=== PATIENT | female | born 1935 | race Caucasian/White ===

== ENCOUNTER 2021-03-08 19:30 | Inpatient (IN) ==
[2021-03-08] MEDS ORDERED: Morphine 4 MG/ML VIAL (1 ml) IV ONE (22:51)
[2021-03-08] MEDS ORDERED: Lactated Ringers 1000 ml BAG 1,000 ML IV SCH (23:45)
[2021-03-08 23:56] LABS: ABS Eosinophils 0.1 10^3/ul (0-0.6); ABS Lymphocytes 0.7 10^3/ul (1.0-4.8); ABS Monocytes 0.8 10^3/ul (0-0.8); ABS Neutrophils 6.4 10^3/ul (1.5-7.7); Eosinophil % 1.2 %; Hematocrit 31 % (35-47); Hemoglobin 10.7 g/dL (12.0-16.0); Lymphocyte % 8.4 %; Mean Corpuscular HGB Conc 35 g/dL (31-36); Mean Corpuscular Hemoglobin 30 pg (27-31); Mean Corpuscular Volume 86 fL (80-97); Mean Platelet Volume 7.6 fL (7.4-10.4); Platelet Count 137 10^3/uL (150-450); Red Blood Count 3.57 10^6 /uL (3.70-4.87); Red Cell Distribution Width 14 % (10-15)
[2021-03-08] MEDS: Acetaminophen IV 1 GM/100ML 100 ML IV PRN (23:58)
[2021-03-09 00:02] LABS: INR 1.26 (0.86-1.15)
[2021-03-09 00:25] LABS: Albumin 4.2 g/dL (3.2-5.2); Albumin/Globulin Ratio 1.8 (1-3); Calcium 9.3 mg/dL (8.6-10.3); EGFR African American 60.8 (>60); EGFR Non-African American 50.2 (>60); Globulin 2.3 g/dL (2-4); Total Bilirubin 0.7 mg/dL (0.2-1.0); Total Protein 6.5 g/dL (6.4-8.9)
[2021-03-09 00:39] LABS: Rapid COVID-19 Molecular Undetected (Undetected)
[2021-03-09 01:43] LABS: Potassium 4.1 mmol/L (3.5-5.0)
[2021-03-09] MEDS: Heparin 5000 UNITS/ML 1 mL VIAL SUBCUT SCH ×3 (05:21→21:48)
[2021-03-09 06:21] LABS: ABS Lymphocytes 0.9 10^3/ul (1.0-4.8); ABS Monocytes 0.7 10^3/ul (0-0.8); ABS Neutrophils 4.9 10^3/ul (1.5-7.7); Eosinophil % 0.7 %; Hematocrit 30 % (35-47); Hemoglobin 10.8 g/dL (12.0-16.0); Lymphocyte % 13.3 %; Mean Corpuscular HGB Conc 36 g/dL (31-36); Mean Corpuscular Hemoglobin 30 pg (27-31); Mean Corpuscular Volume 86 fL (80-97); Mean Platelet Volume 7.5 fL (7.4-10.4); Platelet Count 128 10^3/uL (150-450); Red Blood Count 3.55 10^6 /uL (3.70-4.87); Red Cell Distribution Width 14 % (10-15); White Blood Count 6.5 10^3/uL (3.5-10.8)
[2021-03-09 06:37] LABS: Calcium 9.3 mg/dL (8.6-10.3); EGFR African American 60.8 (>60); EGFR Non-African American 50.2 (>60); Potassium 4.3 mmol/L (3.5-5.0)
[2021-03-09] MEDS: Acetaminophen IV 1 GM/100ML 100 ML IV PRN ×2 (09:52→17:31)
[2021-03-10] MEDS: Acetaminophen IV 1 GM/100ML 100 ML IV PRN ×3 (00:10→18:07)
[2021-03-10 06:04] LABS: ABS Eosinophils 0.2 10^3/ul (0-0.6); ABS Monocytes 0.5 10^3/ul (0-0.8); ABS Neutrophils 2.6 10^3/ul (1.5-7.7); Eosinophil % 4.8 %; Hematocrit 32 % (35-47); Hemoglobin 11.1 g/dL (12.0-16.0); Lymphocyte % 23.9 %; Mean Corpuscular HGB Conc 35 g/dL (31-36); Mean Corpuscular Hemoglobin 31 pg (27-31); Mean Corpuscular Volume 87 fL (80-97); Mean Platelet Volume 7.6 fL (7.4-10.4); Nucleated Red Blood Cells % 0.1; Platelet Count 125 10^3/uL (150-450); Red Blood Count 3.64 10^6 /uL (3.70-4.87); Red Cell Distribution Width 14 % (10-15); White Blood Count 4.3 10^3/uL (3.5-10.8)
[2021-03-10 06:25] LABS: INR 1.27 (0.86-1.15)
[2021-03-10 06:28] LABS: Calcium 9.4 mg/dL (8.6-10.3); EGFR African American 60.1 (>60); EGFR Non-African American 49.7 (>60); Potassium 4.6 mmol/L (3.5-5.0)
[2021-03-10] MEDS: Heparin 5000 UNITS/ML 1 mL VIAL SUBCUT SCH ×3 (06:28→22:43)
[2021-03-10] MEDS ORDERED: Metoclopramide 5 MG/ML VIAL (10 mg) IV PRN (11:55)
[2021-03-10] MEDS ORDERED: HYDROcodone/ACETAMIN 5/325 mg TAB PO PRN (11:55)
[2021-03-10] MEDS ORDERED: fentaNYL 100 mcg/2 ml 50 MCG/ML VIAL IV PRN (11:55)
[2021-03-10] MEDS ORDERED: Naloxone 0.4 mg VIAL 0.4 mg/ml 1 ml VIAL IV PRN (11:55)
[2021-03-10] MEDS ORDERED: Ondansetron 4 mg VIAL 2 MG/ML 2 ml VIAL IV PRN (11:55)
[2021-03-10] MEDS ORDERED: Morphine 2 MG/ML SYRINGE ONE (12:09)
[2021-03-10] MEDS: Morphine 2 MG/ML SYRINGE IV PRN (12:12)
[2021-03-10] MEDS: Ondansetron 4 mg VIAL 2 MG/ML 2 ml VIAL IV PRN (12:12)
[2021-03-11] MEDS ORDERED: Bupivacaine 0.25% EPI 200,000 30 ML SDV ONE (06:36)
[2021-03-11 07:06] LABS: ABS Eosinophils 0.2 10^3/ul (0-0.6); ABS Lymphocytes 0.8 10^3/ul (1.0-4.8); ABS Monocytes 0.6 10^3/ul (0-0.8); ABS Neutrophils 3.6 10^3/ul (1.5-7.7); Hematocrit 32 % (35-47); Hemoglobin 11.5 g/dL (12.0-16.0); Lymphocyte % 15.9 %; Mean Corpuscular HGB Conc 36 g/dL (31-36); Mean Corpuscular Hemoglobin 31 pg (27-31); Mean Corpuscular Volume 86 fL (80-97); Mean Platelet Volume 7.7 fL (7.4-10.4); Nucleated Red Blood Cells % 0.1; Platelet Count 128 10^3/uL (150-450); Red Blood Count 3.74 10^6 /uL (3.70-4.87); Red Cell Distribution Width 14 % (10-15); White Blood Count 5.3 10^3/uL (3.5-10.8)
[2021-03-11 07:07] LABS: INR 1.22 (0.86-1.15)
[2021-03-11 07:12] LABS: Calcium 9.4 mg/dL (8.6-10.3); EGFR African American 59.5 (>60); EGFR Non-African American 49.2 (>60); Magnesium 1.9 mg/dL (1.9-2.7); Potassium 4.6 mmol/L (3.5-5.0)
[2021-03-11] MEDS ORDERED: Buffered Lidocaine 1% SYRIN 1 ml INTRADERM ONE (07:16)
[2021-03-11] MEDS ORDERED: ceFAZolin 2 GM in NS PREMIX 2 GM/100 ML BAG IVPB ONE (07:52)
[2021-03-11] MEDS ORDERED: Rocuronium 50 mg VIAL 10 mg/ml 5 ml VIAL (50 mg) ONE (07:57)
[2021-03-11] MEDS ORDERED: fentaNYL 100 mcg/2 ml 50 MCG/ML VIAL ONE (07:57)
[2021-03-11] MEDS ORDERED: Propofol 10 MG/ML 20 ML BTL ONE (07:58)
[2021-03-11] MEDS ORDERED: Dexamethasone IV 4 MG/ML VIAL 1 ml VIAL ONE (07:58)
[2021-03-11] MEDS ORDERED: Morphine 10 MG/ML VIAL (1 ml) ONE (07:58)
[2021-03-11] MEDS ORDERED: Ondansetron 4 mg VIAL 2 MG/ML 2 ml VIAL ONE (07:58)
[2021-03-11] MEDS ORDERED: Ketamine HCL 50 mg/ml 10 ml VIAL (500 MG) ONE (07:59)
[2021-03-11] MEDS ORDERED: Phenylephrine 40 mcg/mL 10mL (400mcg) SYRINGE ONE ×3 (09:36→11:45)
[2021-03-11 10:20] LABS: Albumin 4.1 g/dL (3.2-5.2); Albumin/Globulin Ratio 1.8 (1-3); Globulin 2.3 g/dL (2-4); HDL Cholesterol 39.8 mg/dL; Total Bilirubin 0.6 mg/dL (0.2-1.0); Total Protein 6.4 g/dL (6.4-8.9)
[2021-03-11] MEDS ORDERED: EPHEDrine (Pressors) 50 MG/ML VIAL ONE (10:21)
[2021-03-11] MEDS ORDERED: Phenylephrine IV 10 MG/ML 1 ml VIAL ONE (11:20)
[2021-03-11] MEDS ORDERED: Desflurane 240 ML INH ONE (11:53)
[2021-03-11 13:04] LABS: TSH Ultra Thyroid Stim Horm 0.9 mcIU/mL (0.34-5.60)
[2021-03-11 13:43] LABS: Hematocrit 21 % (35-47); Hemoglobin 7.1 g/dL (12.0-16.0); Mean Corpuscular HGB Conc 34 g/dL (31-36); Mean Corpuscular Hemoglobin 30 pg (27-31); Mean Corpuscular Volume 89 fL (80-97); Mean Platelet Volume 7.6 fL (7.4-10.4); Platelet Count 115 10^3/uL (150-450); Red Blood Count 2.35 10^6 /uL (3.70-4.87); Red Cell Distribution Width 14 % (10-15); White Blood Count 10.3 10^3/uL (3.5-10.8)
[2021-03-11] MEDS ORDERED: Naloxone 0.4 mg VIAL 0.4 mg/ml 1 ml VIAL ONE (14:27)
[2021-03-11] MEDS ORDERED: EPINEPHrine,Rac 2.25% NEB.SOL 0.5 ML ONE (14:52)
[2021-03-11 18:04] LABS: Hematocrit 25 % (35-47); Hemoglobin 8.4 g/dL (12.0-16.0)
[2021-03-11] MEDS: Acetaminophen IV 1 GM/100ML 100 ML IV PRN (18:06)
[2021-03-11] MEDS ORDERED: methylPREDNISolone SOD 40 mg/ml 1 ml VIAL IV SCH (18:30)
[2021-03-11] MEDS ORDERED: Dexamethasone IV 4 MG/ML VIAL 1 ml VIAL IV SLOW PU SCH (19:00)
[2021-03-11] MEDS: EPINEPHrine,Rac 2.25% NEB.SOL 0.5 ML INH SCH ×2 (19:17→23:00)
[2021-03-11] MEDS: Lactated Ringers 1000 ml BAG 1,000 ML IV ONE (19:50)
[2021-03-11] MEDS: ceFAZolin 2 GM in NS PREMIX 2 GM/100 ML BAG IVPB SCH (19:50)
[2021-03-11] MEDS: Dexamethasone IV 4 MG/ML VIAL 1 ml VIAL IV SLOW PU SCH (19:50)
[2021-03-11] MEDS ORDERED: Lactated Ringers 500 ml BAG 500 ML IV SCH (23:45)
[2021-03-12] MEDS: Dexamethasone IV 4 MG/ML VIAL 1 ml VIAL IV SLOW PU SCH ×2 (00:15→05:27)
[2021-03-12] MEDS: Acetaminophen IV 1 GM/100ML 100 ML IV PRN ×3 (00:19→14:18)
[2021-03-12] MEDS: Lactated Ringers 1000 ml BAG 1,000 ML IV ONE (01:31)
[2021-03-12] MEDS: ceFAZolin 2 GM in NS PREMIX 2 GM/100 ML BAG IVPB SCH ×2 (03:02→09:10)
[2021-03-12] MEDS: EPINEPHrine,Rac 2.25% NEB.SOL 0.5 ML INH SCH ×2 (03:05→07:24)
[2021-03-12] MEDS: Heparin 5000 UNITS/ML 1 mL VIAL SUBCUT SCH ×3 (05:27→20:47)
[2021-03-12 06:13] LABS: ABS Lymphocytes 0.7 10^3/ul (1.0-4.8); ABS Monocytes 0.7 10^3/ul (0-0.8); ABS Neutrophils 9.7 10^3/ul (1.5-7.7); Hematocrit 23 % (35-47); Hemoglobin 7.8 g/dL (12.0-16.0); Mean Corpuscular HGB Conc 34 g/dL (31-36); Mean Corpuscular Hemoglobin 29 pg (27-31); Mean Corpuscular Volume 84 fL (80-97); Mean Platelet Volume 7.9 fL (7.4-10.4); Platelet Count 114 10^3/uL (150-450); Red Cell Distribution Width 15 % (10-15); White Blood Count 11.1 10^3/uL (3.5-10.8)
[2021-03-12 06:30] LABS: Calcium 8.2 mg/dL (8.6-10.3); EGFR African American 57.6 (>60); EGFR Non-African American 47.6 (>60); Magnesium 1.6 mg/dL (1.9-2.7); Phosphorus 2.8 mg/dL (2.5-5.0); Potassium 4.8 mmol/L (3.5-5.0)
[2021-03-12] MEDS ORDERED: EPINEPHrine,Rac 2.25% NEB.SOL 0.5 ML INH PRN (08:02)
[2021-03-12] MEDS: Ondansetron 4 mg VIAL 2 MG/ML 2 ml VIAL IV PRN (20:47)
[2021-03-12] MEDS: Morphine 2 MG/ML SYRINGE IV PRN (20:47)
[2021-03-13] MEDS: Heparin 5000 UNITS/ML 1 mL VIAL SUBCUT SCH ×3 (05:31→21:51)
[2021-03-13 05:58] LABS: ABS Lymphocytes 1.5 10^3/ul (1.0-4.8); ABS Monocytes 1.1 10^3/ul (0-0.8); ABS Neutrophils 8.7 10^3/ul (1.5-7.7); Eosinophil % 0.1 %; Hematocrit 20 % (35-47); Hemoglobin 6.8 g/dL (12.0-16.0); Lymphocyte % 13.2 %; Mean Corpuscular HGB Conc 34 g/dL (31-36); Mean Corpuscular Hemoglobin 29 pg (27-31); Mean Corpuscular Volume 86 fL (80-97); Mean Platelet Volume 7.7 fL (7.4-10.4); Platelet Count 143 10^3/uL (150-450); Red Blood Count 2.37 10^6 /uL (3.70-4.87); Red Cell Distribution Width 15 % (10-15); White Blood Count 11.4 10^3/uL (3.5-10.8)
[2021-03-13 06:15] LABS: Calcium 8.4 mg/dL (8.6-10.3); EGFR African American 54.1 (>60); EGFR Non-African American 44.7 (>60); Magnesium 1.8 mg/dL (1.9-2.7); Potassium 4.7 mmol/L (3.5-5.0)
[2021-03-13] MEDS ORDERED: Magnesium Sulfate 2 gm BAG 2 GM/50 ML BAG IVPB ONE (07:19)
[2021-03-13] MEDS: Acetaminophen IV 1 GM/100ML 100 ML IV PRN (07:53)
[2021-03-13 15:06] LABS: Hematocrit 22 % (35-47); Hemoglobin 7.5 g/dL (12.0-16.0)
[2021-03-14 05:02] LABS: Hematocrit 22 % (35-47); Hemoglobin 7.6 g/dL (12.0-16.0); Mean Corpuscular HGB Conc 34 g/dL (31-36); Mean Corpuscular Hemoglobin 28 pg (27-31); Mean Corpuscular Volume 83 fL (80-97); Mean Platelet Volume 7.6 fL (7.4-10.4); Platelet Count 128 10^3/uL (150-450); Red Blood Count 2.69 10^6 /uL (3.70-4.87); Red Cell Distribution Width 17 % (10-15); White Blood Count 9.1 10^3/uL (3.5-10.8)
[2021-03-14] MEDS: Heparin 5000 UNITS/ML 1 mL VIAL SUBCUT SCH ×3 (05:09→21:20)
[2021-03-14] MEDS: Acetaminophen IV 1 GM/100ML 100 ML IV PRN (05:14)
[2021-03-14 05:17] LABS: Calcium 8.2 mg/dL (8.6-10.3); EGFR African American 83.5 (>60); Magnesium 2.3 mg/dL (1.9-2.7); Phosphorus 2.9 mg/dL (2.5-5.0); Potassium 4.6 mmol/L (3.5-5.0)
[2021-03-15] MEDS: Heparin 5000 UNITS/ML 1 mL VIAL SUBCUT SCH ×3 (05:28→21:14)
[2021-03-15 07:44] LABS: ABS Eosinophils 0.2 10^3/ul (0-0.6); ABS Monocytes 0.8 10^3/ul (0-0.8); ABS Neutrophils 6.5 10^3/ul (1.5-7.7); Hematocrit 26 % (35-47); Hemoglobin 8.9 g/dL (12.0-16.0); Mean Corpuscular HGB Conc 34 g/dL (31-36); Mean Corpuscular Hemoglobin 29 pg (27-31); Mean Corpuscular Volume 86 fL (80-97); Mean Platelet Volume 7.8 fL (7.4-10.4); Platelet Count 166 10^3/uL (150-450); Red Blood Count 3.07 10^6 /uL (3.70-4.87); Red Cell Distribution Width 17 % (10-15); White Blood Count 8.5 10^3/uL (3.5-10.8)
[2021-03-15 07:45] LABS: Eosinophil % 2.7 %; Lymphocyte % 12.1 %
[2021-03-15 07:57] LABS: Calcium 8.6 mg/dL (8.6-10.3); Magnesium 2.2 mg/dL (1.9-2.7); Potassium 4.8 mmol/L (3.5-5.0)
[2021-03-15] MEDS ORDERED: Furosemide 40 mg/4 ml IV VIAL IV ONE (10:19)
[2021-03-15] MEDS: Nystatin SUSPENSION 100,000 UNITS/ML UDC PO SCH (22:28)
[2021-03-16] MEDS: Heparin 5000 UNITS/ML 1 mL VIAL SUBCUT SCH ×3 (05:58→20:48)
[2021-03-16 06:16] LABS: Calcium 8.4 mg/dL (8.6-10.3); Potassium 4.6 mmol/L (3.5-5.0)
[2021-03-16 06:33] LABS: Hematocrit 24 % (35-47); Hemoglobin 8.4 g/dL (12.0-16.0); Mean Corpuscular HGB Conc 34 g/dL (31-36); Mean Corpuscular Hemoglobin 29 pg (27-31); Mean Corpuscular Volume 84 fL (80-97); Mean Platelet Volume 7.8 fL (7.4-10.4); Platelet Count 172 10^3/uL (150-450); Red Blood Count 2.89 10^6 /uL (3.70-4.87); Red Cell Distribution Width 16 % (10-15); White Blood Count 6.7 10^3/uL (3.5-10.8)
[2021-03-16] MEDS: Senna TAB 8.6 mg TAB PO PRN (08:15)
[2021-03-16] MEDS: Nystatin SUSPENSION 100,000 UNITS/ML UDC PO SCH ×4 (08:16→20:48)
[2021-03-17] MEDS: Heparin 5000 UNITS/ML 1 mL VIAL SUBCUT SCH ×3 (06:10→21:47)
[2021-03-17] MEDS: Magnesium Hydroxide LIQ 30 ML UDC PO PRN (08:11)
[2021-03-17] MEDS: Nystatin SUSPENSION 100,000 UNITS/ML UDC PO SCH ×4 (08:55→20:19)
[2021-03-18] MEDS: Heparin 5000 UNITS/ML 1 mL VIAL SUBCUT SCH ×3 (06:18→21:38)
[2021-03-18] MEDS: Nystatin SUSPENSION 100,000 UNITS/ML UDC PO SCH ×4 (08:53→20:15)
[2021-03-18] MEDS: Senna TAB 8.6 mg TAB PO PRN (08:54)
[2021-03-18] MEDS: Aspirin EC 81 mg TAB.EC (enteric coated) PO SCH (19:18)
[2021-03-19] MEDS: Heparin 5000 UNITS/ML 1 mL VIAL SUBCUT SCH ×3 (05:48→21:47)
[2021-03-19] MEDS: Aspirin EC 81 mg TAB.EC (enteric coated) PO SCH (09:54)
[2021-03-19] MEDS: Nystatin SUSPENSION 100,000 UNITS/ML UDC PO SCH ×4 (09:54→21:47)
[2021-03-19 11:28] LABS: Hematocrit 26 % (35-47); Hemoglobin 8.8 g/dL (12.0-16.0); Mean Corpuscular HGB Conc 34 g/dL (31-36); Mean Corpuscular Hemoglobin 29 pg (27-31); Mean Corpuscular Volume 84 fL (80-97); Mean Platelet Volume 7.6 fL (7.4-10.4); Platelet Count 268 10^3/uL (150-450); Red Blood Count 3.05 10^6 /uL (3.70-4.87); Red Cell Distribution Width 16 % (10-15); White Blood Count 5.6 10^3/uL (3.5-10.8)
[2021-03-19 12:16] LABS: ABS Eosinophils 0.3 10^3/ul (0-0.6); ABS Lymphocytes 0.9 10^3/ul (1.0-4.8); ABS Monocytes 0.7 10^3/ul (0-0.8); ABS Neutrophils 3.7 10^3/ul (1.5-7.7); Eosinophil % 5.7 %; Lymphocyte % 15.1 %; Nucleated Red Blood Cells % 0.1
[2021-03-20] MEDS: Heparin 5000 UNITS/ML 1 mL VIAL SUBCUT SCH ×3 (05:47→22:27)
[2021-03-20] MEDS: Senna TAB 8.6 mg TAB PO PRN (09:09)
[2021-03-20] MEDS: Aspirin EC 81 mg TAB.EC (enteric coated) PO SCH (09:09)
[2021-03-20] MEDS: Nystatin SUSPENSION 100,000 UNITS/ML UDC PO SCH ×4 (09:09→20:12)
[2021-03-21] MEDS: Heparin 5000 UNITS/ML 1 mL VIAL SUBCUT SCH ×3 (05:29→23:01)
[2021-03-21] MEDS: Aspirin EC 81 mg TAB.EC (enteric coated) PO SCH (07:59)
[2021-03-21] MEDS: Nystatin SUSPENSION 100,000 UNITS/ML UDC PO SCH ×4 (07:59→20:02)
[2021-03-22] MEDS: Heparin 5000 UNITS/ML 1 mL VIAL SUBCUT SCH ×3 (05:24→22:42)
[2021-03-22] MEDS: Nystatin SUSPENSION 100,000 UNITS/ML UDC PO SCH ×3 (08:04→17:15)
[2021-03-22] MEDS: Aspirin EC 81 mg TAB.EC (enteric coated) PO SCH (08:04)
[2021-03-22 11:11] LABS: Rapid COVID-19 Molecular Undetected (Undetected)
[2021-03-23] MEDS: Heparin 5000 UNITS/ML 1 mL VIAL SUBCUT SCH ×2 (05:43→08:12)
[2021-03-23] MEDS: Aspirin EC 81 mg TAB.EC (enteric coated) PO SCH (08:15)
[2021-03-23] MEDS: Magnesium Hydroxide LIQ 30 ML UDC PO PRN (08:15)
[2021-03-23 11:46] VITALS: BP 114/38
== END 2021-03-23 15:00 | DRG 480 ==
LOC: ED 19:30 → SUATTDRO 23:26 → MEDTELE 23:26 → SSU 03-09 16:27 → ICU 03-11 17:44 → SSU 03-14 17:10
PROVIDERS: ADMIT Student in an Organized Health Care Education/Training Program; ATTEND Student in an Organized Health Care Education/Training Program